=== PATIENT | female | born 2000 | race Caucasian/White ===

== ENCOUNTER 2019-03-14 19:50 | Emergency (ER) | payer OTHER ==
[2019-03-14 19:59] VITALS: BP 127/72
--- NOTE | 2019-03-14 21:23 | ER Document Report ---
HPI - HPI Time Seen by Provider: 03/14/19 20:37 Pain Level: 1 Notes: Patient is a 19-year-old female with no significant past medical history who presents complaining of right lower pelvic pain that has been intermittent and described as a cramping pain. Patient states that the pain does not radiate. She has not had any vaginal discharge, odor, or bleeding. Patient states that she did have a home test that was positive. She is otherwise eating and drinking without difficulty. She is urinating normally and having normal bowel movements. Denies drug allergies. Last menstrual period was 1 month ago. Denies any headache, fever, URI, sore throat, chest pain, palpitations, syncope, cough, shortness of breath, wheeze, dyspnea, nausea/vomiting/diarrhea, urinary retention, dysuria, hematuria, or rash. - ROS Systems Reviewed and Negative: Yes All other systems reviewed and negative - REPRODUCTIVE LMP: 02/10/19 Reproductive: REPORTS: : Past Medical History - Social History Smoking Status: Unknown if Ever Smoked Family History: Reviewed & Not Pertinent Vertical Provider Document - CONSTITUTIONAL Agree With Documented VS: Yes Notes: PHYSICAL EXAMINATION: GENERAL: Well-appearing, well-nourished and in no acute distress. HEAD: Atraumatic, normocephalic. EYES: Pupils equal round and reactive to light, extraocular movements intact, sclera anicteric, conjunctiva are normal. LUNGS: Breath sounds clear to auscultation bilaterally and equal. No wheezes rales or rhonchi. HEART: Regular rate and rhythm without murmurs, rubs, gallops. ABDOMEN: Soft, nondistended abdomen. No guarding, no rebound. Normal bowel sounds present. No CVA tenderness bilaterally. + tenderness rt lower pelvic. No tenderness at [place]. Musculoskeletal: FROM to passive/active. Strength 5+/5. Extremities: No cyanosis, clubbing, or edema b/l. Peripheral pulses 2+. Capillary refill less than 3 seconds. NEUROLOGICAL: Normal speech, normal gait. PSYCH: Normal mood, normal affect. SKIN: Warm, Dry, normal turgor, no rashes or lesions noted. - INFECTION CONTROL TRAVEL OUTSIDE OF THE [place] IN LAST 30 DAYS: No Course - Re-evaluation Re-evalutation: 03/14/19 23:48 I did speak with OBGYN, Dr. Weller, who would like her to call their office t to be seen that day and have a repeat HCG performed. Patient is an afebrile, well-hydrated, 19-year-old female who presents to the ED with very early with HCG 42 with LMP 1mo ago. Vitals are acceptable without any significant tachycardia, tachypnea, or hypoxia. PE is otherwise unremarkable. Labs otherwise unremarkable. TVUS shows probable dominant follicle rt ovary 1.9cm. Patient is nontoxic-appearing is tolerating p.o. without any difficulties. No other labs or imaging warranted at this time based on H&P. Low suspicion/risk for acute appendicitis, bowel obstruction, acute cholecystitis, acute cholangitis, perforated diverticulitis, incarcerated hernia, pancreatitis, perforated ulcer, peritonitis, sepsis, pelvic inflammatory disease, tubo-ovarian abscess, ovarian torsion, or other systemic emergent condition at this time. Patient is aware that her condition can change from initial presentation and she needs to monitor symptoms closely and seek medical attention if any acute changes. Call [facility] friday as reviewed. Return to the ED with any worsening/concerning symptoms otherwise as reviewed in discharge. Patient is in agreement. - Vital Signs Vital signs: Temp Pulse Resp BP Pulse Ox 97.8 F 77 15 127/72 H 99 03/14/19 19:57 03/14/19 19:57 03/14/19 19:57 03/14/19 19:57 03/14/19 19:57 - Laboratory Result Diagrams: 03/14/19 21:28 03/14/19 21:28 Discharge - Discharge Clinical Impression: Early stage of , Pelvic pain Condition: Stable Disposition: HOME, SELF-CARE Additional Instructions: As reviewed, you are at the very early stage of the with an hCG level of 42. You are having some right lower pelvic pain which is most likely just a dominant follicle on the ovary, but we are unable to adequately rule out an ectopic . As reviewed with [employer] [facility], Dr. Weller, you are to call their office at 8 AM on Friday so he can follow-up that day and have a repeat hCG performed. Maintain fluid intake Proper hygienic technique Keep the skin clean Tylenol as needed Return to the ED with any development of NEWSOME/fever, trouble with vision, eye redness, worsening pain, urethral discharge, urinary retention, blood in the urine, flank pain, abdominal pain, n/v, chest Pain, shortness of breath, joint pains, trouble breathing, or any other worsening/concerning symptoms as needed otherwise. Forms: Elevated Blood Pressure Referrals: [facility] [Provider Group] - 03/16/19
[2019-03-14 21:54] LABS: ABSOLUTE EOSINOPHILS # (AUTO) 0.1 10^3/uL (0.0-0.6); ABSOLUTE LYMPHOCYTES (AUTO) 2.6 10^3/uL (0.5-4.7); ABSOLUTE MONOCYTES (AUTO) 0.5 10^3/uL (0.1-1.4); ABSOLUTE NEUT (AUTO) 7.5 10^3/uL (1.7-8.2); BASOPHILS % (AUTO) 0.3 % (0-2); EOSINOPHILS % (AUTO) 0.7 % (0-6); HEMATOCRIT 41.9 % (36.0-47.0); HEMOGLOBIN 14.6 g/dL (12.0-15.5); MEAN CORPUSCULAR HEMOGLOBIN 32.5 pg (27.0-33.4); MEAN CORPUSCULAR HGB CONC 34.8 g/dL (32.0-36.0); MEAN CORPUSCULAR VOLUME 94 fl (80-97); PLATELET COUNT 214 10^3/uL (150-450); RED BLOOD COUNT 4.48 10^6/uL (3.72-5.28); RED CELL DISTRIBUTION WIDTH 11.7 % (11.5-14.0); TOTAL CELLS COUNTED % (AUTO) 100 %; WHITE BLOOD COUNT 10.8 10^3/uL (4.0-10.5)
[2019-03-14 21:56] LABS: APPEARANCE,URINE CLEAR; BILIRUBIN,URINE NEGATIVE (NEGATIVE); COLOR,URINE STRAW; GLUCOSE, URINE NEGATIVE (NEGATIVE); KETONES,URINE TRACE mg/dL (NEGATIVE); LEUKOCYTE ESTERASE,URINE NEGATIVE (NEGATIVE); NITRITE,URINE NEGATIVE (NEGATIVE); PROTEIN,URINE NEGATIVE (NEGATIVE); URINE SPECIFIC GRAVITY 1.008; UROBILINOGEN,URINE NEGATIVE mg/dL (<2.0)
[2019-03-14 22:08] LABS: ALBUMIN 4.9 g/dL (3.5-5.0); ALKALINE PHOSPHATASE 92 U/L (38-126); ANION GAP 12 (5-19); ASPARTATE AMINO TRANSFERASE 23 U/L (14-36); BILIRUBIN,DIRECT 0.2 mg/dL (0.0-0.4); BILIRUBIN,TOTAL 0.7 mg/dL (0.2-1.3); BLOOD UREA NITROGEN 14 mg/dL (7-20); CALCIUM 10.1 mg/dL (8.4-10.2); CARBON DIOXIDE 24 mmol/L (22-30); CHLORIDE 103 mmol/L (98-107); GLUCOSE 94 mg/dL (75-110); TOTAL PROTEIN 8.1 g/dL (6.3-8.2)
--- NOTE | 2019-03-14 22:32 | RADIOLOGY REPORT (SQ) ---
EXAM DESCRIPTION: [facility]: US PELVIS TRANSVAGINAL CLINICAL HISTORY: 19 years Female rt pelvic pain TECHNIQUE: Endovaginal pelvic ultrasound was performed. COMPARISON: None. FINDINGS: Uterus: 8.3 x 3.8 x 5.8 cm, with homogenous 14 mm endometrial stripe. No uterine masses. Right ovary: 3.2 x 1.7 x 2.2 cm. There is a 1.9 x 1.5 x 1.7 cm avascular area with some internal echoes but peripheral vascularity. Normal vascular flow on Doppler. Left ovary: 2.5 x 2 x 2 x 1 cm fluid. Normal vascular flow on Doppler. Small amount of fluid in the cul-de-sac. IMPRESSION: 1. No ovarian torsion. 2. 1.9 cm right ovarian structure, likely dominant follicle. Please correlate with test.
== END 2019-03-15 00:11 | disposition home or self-care (01) ==
LOC: ER 19:50
DX: O26.891 Other specified pregnancy related conditions, first trimester (principal); R10.2 Pelvic and perineal pain; Z3A.01 Less than 8 weeks gestation of pregnancy
CPT/HCPCS: 36415; 76830; 80053; 81001; 81025; 84702; 84703; 85025; 93976; 99284